=== PATIENT | female | born 1945 | race Caucasian/White ===

== ENCOUNTER → 2018-05-28 | Outpatient (CLI) | payer OTHER ==
--- NOTE | 2018-05-31 14:17 | RESP ---
DATE OF SERVICE: 05/28/2018 FULL PULMONARY FUNCTION TESTS REFERRING PHYSICIAN: JESSE Day The patient's FVC was 2.63, which is 99% predicted. FEV1 was 11.8, which is 95% predicted. The FEV1/FVC ratio was normal. No bronchodilators were given. Lung volumes showed vital capacity of 87% predicted. The patient was unable to do the total lung capacity. Diffusion capacity was normal. IMPRESSION: 1. No significant obstructive airway disease. 2. No bronchodilators were given. 3. Lung volumes could not be performed. 4. Normal diffusion capacity. VARUN NASCIMENTO MD DR: ERIKA/liset JOB#: [id number] / [id number] LUISA Danielson
== END | disposition home or self-care (01) ==
LOC: PF 08:59
DX: R06.00 Dyspnea, unspecified (principal)
CPT/HCPCS: 94010; 94729

== ENCOUNTER → 2018-06-11 | Outpatient (CLI) | payer OTHER ==
--- NOTE | 2018-06-11 10:21 | CARD ---
MR#: [id number] Date of Study: 06/11/2018 Ordering Physician: SHEYLA WORKMAN, Referring Physician: SHEYLA WORKMAN, Tech: Veronika Sanchez SUMEET APPROVED REPORT EXAM: Two-dimensional and M-mode echocardiogram with Doppler and color Doppler. Other Information Quality : Good INDICATION Dyspnea 2D DIMENSIONS RVDd2.5 (2.9-3.5cm)Left Atrium(2D)3.7 (1.6-4.0cm) IVSd0.9 (0.7-1.1cm)Aortic Root(2D)2.9 (2.0-3.7cm) LVDd4.8 (3.9-5.9cm)LVOT Diameter2.0 (1.8-2.4cm) PWd0.9 (0.7-1.1cm)LVDs2.9 (2.5-4.0cm) FS (%) 30.0 %SV74.2 ml LVEF(%)60.0 (>50%) Aortic Valve AoV Peak Lester.108.9cm/sAoV VTI20.3cm AO Peak GR.4.7mmHgLVOT Peak Lseter.74.2cm/s AO Mean GR.2mmHgAVA (VMAX)2.20cm2 ERIK (VTI)2.18bl1AX P 1/2 Cava915te Mitral Valve MV E Eqdazpuw16.6cm/sMV DECEL YJRH754ut MV A Nkwfhiqu60.9cm/sE/A Ratio0.9 Tricuspid Valve TR P. Cisaqyxe672mh/sRAP AXZGLQCU5yzCj TR Peak Gr.81zrOnPBKU90dfIo Pulmonary Vein S1 Ygzuqqbp50.4cm/sD2 Puudxfkf14.8cm/s LEFT VENTRICLE The left ventricle is normal size. There is normal left ventricular wall thickness. The left ventricu lar systolic function is normal. The Ejection Fraction is 55-60%. There is normal LV segmental wall m otion. Transmitral Doppler flow pattern is Grade I-abnormal relaxation pattern. RIGHT VENTRICLE The right ventricle is normal size. The right ventricular systolic function is normal. ATRIA The left atrium size is normal. The right atrium size is normal. The interatrial septum is intact wit h no evidence for an atrial septal defect or patent foramen ovale as noted on 2-D or Doppler imaging. AORTIC VALVE The aortic valve is calcified but opens well. Doppler and Color Flow revealed mild aortic regurgitati on. There is no significant aortic valvular stenosis. MITRAL VALVE The mitral valve is calcified but opens well. There is no evidence of mitral valve prolapse. There is no mitral valve stenosis. Doppler and Color-flow revealed trace mitral regurgitation. TRICUSPID VALVE The tricuspid valve is normal in structure and function. Doppler and Color Flow revealed trace tricus pid regurgitation. The PA pressure was estimated at 27 mmHg. There is no tricuspid valve stenosis. PULMONIC VALVE The pulmonic valve is not well visualized. Doppler and Color Flow revealed mild pulmonic valvular reg urgitation. There is no pulmonic valvular stenosis. GREAT VESSELS The aortic root is normal in size. The ascending aorta is normal in size. The IVC is normal in size a nd collapses >50% with inspiration. PERICARDIAL EFFUSION There is no evidence of significant pericardial effusion. Critical Notification Critical Value: No <Conclusion> The left ventricular systolic function is normal. The Ejection Fraction is 55-60%. There is normal LV segmental wall motion. Mild aortic regurgitation. Trace mitral regurgitation. Trace tricuspid regurgitation. The PA pressure was estimated at 27 mmHg. There is no evidence of significant pericardial effusion. Signed by : Gilberto Demarco, Electronically Approved : 06/11/2018 10:20:18
== END | disposition home or self-care (01) ==
LOC: ECHO 09:30
PROVIDERS: ATTEND Internal Medicine Cardiovascular Disease
DX: I35.1 Nonrheumatic aortic (valve) insufficiency (principal)
CPT/HCPCS: 93306